=== PATIENT | female | born 1980 | race Caucasian/White ===

== ENCOUNTER 2016-10-10 18:03 | Inpatient (IN) | END 2016-10-13 18:12 | disposition home or self-care (01) | DRG 445 | DX: K80.20 Calculus of gallbladder without cholecystitis without obstruction (principal); N39.0 Urinary tract infection, site not specified; B19.10 Unspecified viral hepatitis B without hepatic coma; E66.9 Obesity, unspecified; Z68.32 Body mass index [BMI] 32.0-32.9, adult ==

== ENCOUNTER 2018-09-05 01:06 | Emergency (ER) | payer OTHER ==
[~2018-09-05] VITALS: Ht 157.5 cm; Wt 73.0 kg
[~2018-09-05 01:06] MED LIST: CIPR500T4 PO; IBUP-1542 PO; PREN1TAB49 PO
[2018-09-05 01:10] VITALS: Ht 157.5 cm; Wt 73.0 kg
[2018-09-05] MEDS ORDERED: METOCLOPRAMIDE 10 MG INJ IV STA (02:33)
[2018-09-05] MEDS ORDERED: SOD CHLORIDE 0.9% 1,000 ML IV STA (02:33)
--- NOTE | 2018-09-05 02:38 | ERD ---
ER Documentation Chief Complaint Chief Complaint abdominal pain/vomiting x 24 hours HPI Patient is a 37 years old female with no known past medical history presenting to the clinic for epigastric pain and vomiting next 24 hours. Patient admits to 20 NBNB emesis episode of nausea and chills. Patient denies fever, chest pain, hematochezia, melena. Patient describes her epigastric pain as burning sensation. ROS All systems reviewed and are negative except as per history of present illness. Medications Home Meds Active Scripts Omeprazole* (Omeprazole*) 20 Mg Capsule.dr, 20 MG PO BID, #20 Prov:KATH MAE PA-C 09/05/18 Metoclopramide* (Reglan*) 10 Mg Tablet, 10 MG PO Q6 PRN for NAUSEA AND/OR VOMITING, #10 TAB Prov:KATH MAE PA-C 09/05/18 Ciprofloxacin Hcl* (Ciprofloxacin Hcl*) 500 Mg Tablet, 500 MG PO BID, #10 TAB Prov:YENNI WILSON NP 10/12/16 Ibuprofen* (Motrin*) 600 Mg Tab, 600 MG PO Q6, #20 TAB Prov:JOHN HARDIN PA-C 11/26/14 Reported Medications Vits W-Ca,Fe,Fa(<1MG) () 1 Tab Tablet, 1 TAB PO 03/25/11 Allergies Allergies: Coded Allergies: No Known Allergies (Verified Allergy, Mild, 09/05/18) PMhx/Soc History of Surgery: Yes (3 C-SECTIONS) Anesthesia Reaction: No Hx Neurological Disorder: No Hx Respiratory Disorders: No Hx Cardiac Disorders: No Hx Psychiatric Problems: No Hx Miscellaneous Medical Probl: No Hx Alcohol Use: No Hx Substance Use: No Hx Tobacco Use: No Smoking Status: Never smoker Physical Exam Vitals Vital Signs Date Temp Pulse Resp B/P (MAP) Pulse Ox O2 O2 Flow FiO2 Time Delivery Rate 09/05/18 98.3 88 18 116/56 97 Room Air 04:19 (76) 09/05/18 97.6 87 18 125/61 96 01:10 (82) Physical Exam Const: No acute distress Head: Atraumatic Eyes: Normal Conjunctiva ENT: Normal External Ears, Nose and Mouth. Neck: Full range of motion. No meningismus. Resp: Clear to auscultation bilaterally Cardio: Regular rate and rhythm, no murmurs Abd: Soft, non tender, non distended. Normal bowel sounds Skin: No petechiae or rashes Back: No midline or flank tenderness Ext: No cyanosis, or edema Neur: Awake and alert Psych: Normal Mood and Affect Result Diagram: 09/05/18 0256 09/05/18 0256 Results 24 hrs Laboratory Tests Test 09/05/18 02:15 09/05/18 02:16 09/05/18 02:56 POC Beta HCG, Qualitative NEGATIVE Bedside Urine pH (LAB) 7.0 Bedside Urine Protein (LAB) 2+ Bedside Urine Glucose (UA) Negative Bedside Urine Ketones (LAB) Negative Bedside Urine Blood 2+ Bedside Urine Nitrite (LAB) Negative Bedside Urine Leukocyte Esterase (L 1+ White Blood Count 10.3 10^3/ul Red Blood Count 4.41 10^6/ul Hemoglobin 13.3 g/dl Hematocrit 37.2 % Mean Corpuscular Volume 84.4 fl Mean Corpuscular Hemoglobin 30.2 pg Mean Corpuscular Hemoglobin Concent 35.8 g/dl Red Cell Distribution Width 12.2 % Platelet Count 368 10^3/UL Mean Platelet Volume 10.4 fl Immature Granulocytes % 0.300 % Neutrophils % 75.5 % Lymphocytes % 14.5 % Monocytes % 8.4 % Eosinophils % 0.8 % Basophils % 0.5 % Nucleated Red Blood Cells % 0.0 /100WBC Immature Granulocytes # 0.030 10^3/ul Neutrophils # 7.8 10^3/ul Lymphocytes # 1.5 10^3/ul Monocytes # 0.9 10^3/ul Eosinophils # 0.1 10^3/ul Basophils # 0.1 10^3/ul Nucleated Red Blood Cells # 0.0 10^3/ul Urine Color LISA Urine Clarity SLIGHTLY CLOUDY Urine pH 6.0 Urine Specific [place] 1.021 Urine Ketones NEGATIVE mg/dL Urine Nitrite NEGATIVE mg/dL Urine Bilirubin 1+ mg/dL Urine Urobilinogen 1+ mg/dL Urine Leukocyte Esterase TRACE Sp/ul Urine Microscopic RBC 36 /HPF Urine Microscopic WBC 3 /HPF Urine Squamous Epithelial Cells MODERATE /HPF Urine Bacteria FEW /HPF Urine Hemoglobin 2+ mg/dL Urine Glucose NEGATIVE mg/dL Urine Total Protein 1+ mg/dl Sodium Level 141 mmol/L Potassium Level 4.5 mmol/L Chloride Level 106 mmol/L Carbon Dioxide Level 26 mmol/L Anion Gap 9 Blood Urea Nitrogen 9 mg/dl Creatinine 0.54 mg/dl Est Glomerular Filtrat Rate mL/min > 60 mL/min Glucose Level 115 mg/dl Calcium Level 9.9 mg/dl Total Bilirubin 3.0 mg/dl Direct Bilirubin 0.40 mg/dl Indirect Bilirubin 2.6 mg/dl Aspartate Amino Transf (AST/SGOT) 1198 IU/L Alanine Aminotransferase (ALT/SGPT) 948 IU/L Alkaline Phosphatase 123 IU/L Total Protein 9.0 g/dl Albumin 4.5 g/dl Globulin 4.50 g/dl Albumin/Globulin Ratio 1.00 Lipase 132 U/L Current Medications Medications Dose Sig/Ernie Start Time Status Last (Trade) Ordered Route PRN Stop Time Admin Dose Reason Admin Sodium 1,000 ml @ Q1H STAT 09/05/18 DC 09/05/18 Chloride 1,000 mls/hr IV 02:33 09/05/18 02:57 03:32 10 mg ONCE STAT 09/05/18 DC 09/05/18 Metoclopramid IV 02:33 09/05/18 02:57 e HCl 02:36 (Reglan) 40 mg ONCE ONCE 09/05/18 DC 09/05/18 Pantoprazole IV 03:00 09/05/18 03:05 (Protonix 03:01 Iv) Procedures/MDM Patient was evaluated for abdominal pain and emesis. CBC, CMP, lipase, urinalysis are grossly unremarkable with trace leukocyte Estrace. Low suspicion of colitis, appendicitis, cholecystitis. Patient was given IV normal saline, IV Reglan, and IV Protonix with significant improvement of symptoms. Patient is mostly experiencing dyspepsia vs GERD. Patient is stable ready for discharge. Follow-up with PCP. Patient will be discharged with omeprazole and Reglan. Departure Diagnosis: Primary Impression: Abdominal pain Abdominal location: epigastric Qualified Codes: R10.13 - Epigastric pain Condition: Stable Patient Instructions: Abdominal Pain Referrals: [facility] Additional Instructions: Patient advised to return to the ED immediately for new or worsening symptoms. Patient advised to follow up with primary care provider in the next 24-48 hours. Patient verbalized understanding and agrees with treatment plan and course of action. If patient has no primary care they may follow up with [facility] + [address] [address] or [phone] [place] [address] or [facility] [address] [place] [address] KATH MAE PA-C Sep 05, 2018 02:38
[2018-09-05] MEDS ORDERED: PANTOPRAZOLE 40 MG INJ IV ONE (03:00)
[2018-09-05] MEDS ORDERED: METO10TA92 PO (04:02)
[2018-09-05] MEDS ORDERED: OMEP20CA16 PO (04:02)
[2018-09-05 04:19] VITALS: BP 116/56; PULSE 88; RESP 18
== END 2018-09-05 04:21 | disposition home or self-care (01) ==
LOC: FTE 01:06
DX: R10.13 Epigastric pain (principal)
CPT/HCPCS: 36415; 80053; 81001; 81025; 83690; 85025; 96361; 96374; 96375; C9113; J2765; J7030; Z7502; 81003